=== PATIENT | male | born 1940 | race Caucasian/White ===

== ENCOUNTER 2021-04-18 13:02 | Emergency (ER) | payer MEDICARE, BC, SELFPAY ==
[2021-04-18 13:30] VITALS: BP 127/49; PULSE 77; RESP 20; TEMP 36.9; O2SAT 98; BMI 24.1
[2021-04-18 14:05] LABS: Apearance,Urine Turbid (Clear); Color,Urine Amber (Yellow); Glucose,Urine (UA) >=1000 (Negative); Ketones,Urine Negative (Negative); PH,Urine 5.5 (5.0-8.5); Protein,Urine 2+ (Negative); Specific Gravity, Urine 1.015 (1.005-1.030)
[2021-04-18 14:06] LABS: Bilirubin,Urine Negative (Negative); Blood, Urine 3+ (Negative); UTC Leukocyte Esterase,Urine Trace (Negative); UTC Nitrate,Urine Negative (Negative); Urobilinogen,Urine 0.2 EU/dl (0.2)
--- NOTE | 2021-04-18 14:22 | HMH.EDUTC ---
[facility] [place] Clinical Impression: UTI (urinary tract infection) Qualifiers: Urinary tract infection type: site unspecified Hematuria presence: with hematuria Qualified Code(s): N39.0 - Urinary tract infection, site not specified Disposition: Home, Self-Care Condition on Discharge: Good Instructions: Urinary Tract Infection, Urine Culture, DI for Urinary Tract Infection (UTI), Ciprofloxacin Additional Instructions: Drink plenty of fluids. Take tylenol or ibuprofen for pain or fever. Take the medications as directed. Follow up with your regular doctor. GO TO THE ER FOR ANY WORSENING SYMPTOMS Your urine was sent for a culture. This test takes 3 days to be finished. It will tell for sure what organism you have in your urine and what medications will treat it the best. With your history of have a fungal infection, make sure you hear from us in 3 days or follow up with a primary care physician to discuss the results and possibly change the treatment. You also should follow up when you are around the day you finish the antibiotics to have your urine rechecked to make sure the infection is gone. If its not completely gone it could come back and make you sick again soon. Prescriptions: Ciprofloxacin HCl 500 mg PO BID 10 Days #20 tab Transmission Status: Received by [facility] #[id number] Referrals: Provider,ReferralMD [Primary Care Provider] - Medical Decision Making - Medical Records Medical records reviewed: No: I reviewed the patient's medical records. - Gustavo Inquiry Pt receiving controlled substance: No Vital Signs: 04/18/21 13:30 04/18/21 14:32 Temperature 98.5 F 98.5 F Temperature Source Oral Pulse Rate 77 Pulse Rate [Right Brachial] 77 Respiratory Rate 20 20 Blood Pressure 127/49 L Blood Pressure [Right Arm] 127/49 L Blood Pressure Mean [Right Arm] 75 Blood Pressure Source [Right Arm] Automatic Cuff Blood Pressure Position [Right Arm] Sitting 02 Sat by Pulse Oximetry 98 Oxygen Delivery Method Room Air - Lab Data Lab results reviewed: Yes: I reviewed the patient's lab results. Lab Results 04/18/21 13:58: Urine Color Christina, Urine Appearance Turbid, Urine pH 5.5, Ur Specific [place] 1.015, Urine Protein 2+, Urine Glucose (UA) >=1000, Urine Ketones Negative, Urine Blood 3+, Urine Nitrate Negative, Urine Bilirubin Negative, Urine Urobilinogen 0.2, Ur Leukocyte Esterase Trace Orders (Tests/Meds): ED MEDICATIONS Discontinued Medications Generic Name Dose Route Start Last Admin Trade Name Aline PRN Reason Stop Dose Admin Ceftriaxone Sodium 1 gm 04/18/21 14:36 04/18/21 14:49 Ceftriaxone 1gm Vial IM 04/18/21 14:37 1 gm ONCE ONE Administration Protocol Lidocaine HCl 0 ml 04/18/21 14:36 04/18/21 14:49 Lidocaine 1% 5ml Pf Vial IM 04/18/21 14:37 2.1 ml ONCE ONE Administration ORDERS Category Date Time Status Urine Culture Stat Micro 04/18/21 13:40 [place] [facility] [place] - General Stated complaint: possible UTI Time Seen by Provider: 04/18/21 14:23 Mode of Arrival: Ambulatory Source of Information: Patient, Relative Limitations: No Limitations Description of Symptoms (Recalled from Triage Doc. by RN): PATIENT C/O BURING AND FREQUENCY WITH URINATION, BACK PAIN, AND FOUL SMELLING URINE X 1 WEEK. HISTORY OF UTI HEENT Symptoms (Recalled from RN notes): No Resp Symptoms (Recalled from RN notes): No Skin Symptoms (Recalled from RN notes): No MS Symptoms (Recalled from RN notes): No Functional Status (Recalled from RN notes): WNL - History of Present Illness Provider Complaint: He c/o foul smelling urine and urinary frequency for the past 1 week. He has a history of getting UTIs at times. He is here on vacation from [place]. He has a history of PVD, DM type 2. 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 He denies any history of decreased renal function or kidney failure. - Related Data Previous Rx's Medication Instructio
[2021-04-18 14:32] VITALS: BP 127/49; PULSE 77; RESP 20; TEMP 36.9; O2SAT 98
== END 2021-04-18 14:56 | disposition home or self-care (01) ==
PROVIDERS: Emergency Provider Nurse Practitioner Family
DX: N30.00 Acute cystitis without hematuria (principal); E11.9 Type 2 diabetes mellitus without complications; F17.210 Nicotine dependence, cigarettes, uncomplicated
CPT/HCPCS: G0463; 81003; 87086; 87088; 87102; 87206; 96372; 99202